=== PATIENT | male | born 1995 | race Caucasian/White ===

== ENCOUNTER 2024-04-28 15:15 | Emergency (ER) | payer OTHER, SELFPAY ==
[2024-04-28 15:19] VITALS: BP 134/84
--- NOTE | 2024-04-28 17:45 | ED.GENMED ---
History of Present Illness
General
Chief Complaint: Medication Reaction
Time Seen by Provider: 04/28/24 17:14
History of Present Illness
History of Present Illness:
28-year-old man presenting to the emergency department with a rash. Patient states that he has wisdom tooth taken out and they gave amoxicillin afterwards. He had 2 doses of the amoxicillin when he developed a rash. The rash has been ongoing for
3 days now. He states that with body wide. At first it did look like hives. It was extremely itchy and raised. Since then the rash has been improving in some areas but spreading in some areas. No fevers or chills. No lesions in the mouth or
the genitals. No rashes to the hands or feet. No fever. He is allergic to lidocaine. He is not on any other medications. He did get his antibiotic changed from the dentist. He did not take any Benadryl prior to arrival. He has not been sick
recently. No fevers or chills. No sore throat. No nausea vomiting.
Phy Exam
Physical Exam
Physical Exam:
GENERAL: in no acute distress
HEENT: normocephalic, extraocular movements intact, moist oral mucosa
NECK: normal inspection
RESPIRATORY: no respiratory distress, clear to auscultation bilaterally
CARDIOVASCULAR: regular rate and rhythm
ABDOMEN/: soft, non-distended, non-tender to palpation, no rebound or guarding
EXTREMITIES: non-tender, no edema/swelling
NEUROLOGIC: awake and alert, moves all extremities
SKIN: warm, hives to the distal extremities and patchy hives to the face. Otherwise there is a macular papular rash to the trunk and bilateral legs. Negative Nikolsky sign.
Course
Orders/Labs/Results
Orders:
Orders
04/28/24 17:39
Diphenhydramine [Benadryl] 25 mg PO NOW STA
Famotidine [Pepcid] 20 mg PO NOW STA
Prednisone [Deltasone] 50 mg PO NOW STA
Vital Signs
Initial and Last Documented VS:
Initial Vital Signs
Temp Pulse Resp BP Pulse Ox
98.7 F 86 16 134/84 100
04/28/24 15:19 04/28/24 15:19 04/28/24 15:19 04/28/24 15:19 04/28/24 15:19
Last Documented Vital Signs
Temp Pulse Resp BP Pulse Ox
98.7 F 86 16 134/84 100
04/28/24 15:19 04/28/24 15:19 04/28/24 15:19 04/28/24 15:19 04/28/24 15:19
MDM/Problems Addressed
Differential Diagnosis Includes:
Patient is a 28-year-old man presenting to the emergency department with body wide rash that occurred after 2 doses of amoxicillin. Vitals are unremarkable and on exam patient does have hives and some location within has a maculopapular rash on his
trunk and bilateral lower extremities. Likely component of allergic reaction as well as drug rash from amoxicillin. History exam is not consistent with amoxicillin rash from mono. Otherwise given that he has no mucosal lesions less likely to be
SJS or ten. Rash does not appear infected to suggest cellulitis. Will treat with Benadryl and steroids. Will give short course of steroids. Patient advised that patient stay away from amoxicillin as the hives do suggest allergic reaction. The
maculopapular rash with a drug rash patient was educated that it could last for days
*Critical Care Note
Total Time (30-74mins, 75-104mins- exclusive of procedures): Not Applicable
ED Attending Note
-
Portions of this chart may have been created with voice recognition software.� Occasional wrong word or��sound alike� substitutions may have occurred due to the inherent limitations of voice recognition software.
Discharge Plan
Departure
Patient Disposition: Home (Routine Discharge)
Date of Disposition: 04/28/24
Time of Disposition: 18:11
Patient with high blood pressure during this ER visit?: No
Discharge Problem:
Rash
Prescriptions:
New
prednisone 20 mg tablet
40 mg PO DAILY 5 Days Qty: 10 0RF
Referrals:
Farzad Culver DO [Family Provider] -
Activity Restrictions/Additional Instructions:
You were seen in the Emergency Department today for a rash. We did give you steroids. I did send you a prescription. You may take geki-evn-rjjhiyk Benadryl for the itchiness as well. Your rash could also be a drug rash from the amoxicillin in
addition to the allergic reaction. The rash will take a few days to resolve.
We would like for you to follow up with your primary care physician for further evaluation. If you experience fever, worsening of your symptoms, or develop any other new or concerning symptoms, please return to the Emergency Department immediately.
Please see the attached sheet for additional information.
Interventions
Interventions:
*Risk Screen - Suicide Last Done: 04/28/24 15:19
*General Assessment Last Done: 04/28/24 15:19
*Neglect/Abuse Screening Last Done: 04/28/24 15:19
*ED COVID-19 Vaccine History Last Done: 04/28/24 15:19
Discharge Date and Time
Print Language: MONTSERRATIAN
[2024-04-28] MEDS: BENADRYL 25 MG PO (18:13)
[2024-04-28] MEDS: DELTASONE 50 MG PO (18:13)
[2024-04-28] MEDS: PEPCID 20 MG PO (18:14)
[2024-04-28 18:20] VITALS: BP 122/68
== END 2024-04-28 18:30 | disposition home or self-care (01) ==
LOC: EMR 15:15
PROVIDERS: EMERGENCY PHYSICIAN Student in an Organized Health Care Education/Training Program; FAMILY PHYSICIAN Student in an Organized Health Care Education/Training Program
DX: R21 Rash and other nonspecific skin eruption (principal)
CPT/HCPCS: 99282

== ENCOUNTER 2024-04-30 19:12 | Emergency (ER) | payer OTHER, SELFPAY ==
[2024-04-30 19:30] VITALS: BP 117/71
[2024-04-30 20:04] VITALS: BMI 21.4
--- NOTE | 2024-04-30 20:05 | ED.GENMED ---
History of Present Illness
General
Chief Complaint: Allergic Reaction
Source: patient
Exam Limitations: none
Time Seen by Provider: 04/30/24 19:56
History of Present Illness
History of Present Illness:
See MDM
Past History
Past History
ED Past Medical History: None
ED Past Surgical History: None
Social History
Tobacco: Non-smoker
Alcohol: None
Phy Exam
Physical Exam
Physical Exam:
See MDM
Course
Orders/Labs/Results
Orders:
Orders
04/30/24 20:04
Dexamethasone Sod Phosphate [Decadron] 10 mg IV NOW STA
HydrOXYzine [Vistaril] 50 mg IM NOW STA
04/30/24 20:12
Complete Blood Count/With Diff Urgent
Comprehensive Metabolic Panel Urgent
Abnormal Lab Results
04/30/24
20:12
RBC 4.42 L 10^6/uL
(4.70-6.10)
MCH 32.4 H pg
(27.0-31.0)
Absolute Lymphs (auto) 0.7 L 10^3/uL
(1.2-3.4)
Absolute Monos (auto) 0.7 H 10^3/uL
(0.1-0.6)
Lymphocytes % 10.4 L %
(20.5-51.1)
Monocytes % 9.7 H %
(1.7-9.3)
Glucose 123 H mg/dl
(70-99)
04/30/24 20:12
04/30/24 20:12
Vital Signs
Initial and Last Documented VS:
Initial Vital Signs
Temp Pulse Resp BP Pulse Ox
99.0 F 95 18 117/71 100
04/30/24 19:30 04/30/24 19:30 04/30/24 19:30 04/30/24 19:30 04/30/24 19:30
Last Documented Vital Signs
Temp Pulse Resp BP Pulse Ox
99.0 F 95 18 126/82 100
04/30/24 19:30 04/30/24 19:30 04/30/24 19:30 04/30/24 20:09 04/30/24 20:15
MDM/Problems Addressed
Differential Diagnosis Includes:
HPI and MDM Narrative:
28-year-old male presenting for evaluation of persistent rash. He was seen several days ago and diagnosed with allergic reaction and started on Pepcid and prednisone. Patient is concerned because he remains itchy despite Benadryl at home. The
rash has now spread and appears to be diffuse. On exam, patient has a macular papular rash with urticaria surrounding his entire body. It appears to spare mucous membranes. He is now having some discoloration of both which appears to be related
to edema causing venous stasis. All 4 extremities neurovascularly intact. Will obtain blood work to rule out evidence of dress syndrome. Will try Vistaril instead of Benadryl and will give dose of IV steroid
Physical exam
General: Nontoxic-appearing. Itching his body
HEENT: protecting airway. Posterior pharynx clear
Neck: appears supple
CV: No evidence of cyanosis
Resp: No accessory muscle use
Abd: Non-distended
Extremities: Venous stasis to bilateral ankles
Neuro: alert
Psych: Normal affect
Skin: Maculopapular rash throughout his body. Spares mucous membranes
Problems Addressed including Acute and Chronic Conditions affecting care:
1. Allergic reaction
Acuity: acute
Prognosis: stable
Details: Given duration of symptoms, patient is out of the window of anaphylaxis. Will give dose of IV steroid and will try IM Vistaril
Updates
On reevaluation after Vistaril and Decadron, patient states he is feeling much better.
Differential Diagnosis (but not limited to): Dress syndrome, gyttate psoriasis, allergic reaction
Testing considered:
Drug therapy (if applicable): OTC meds, please see d/c instruction regarding Rx drugs
Amount and/or Complexity of Data Reviewed
Clinical info obtained from: Patient
External data reviewed: N/A
Labs I independently reviewed (but not limited to): Eosinophils within normal limit
Radiology: N/A
Pulse Ox: not hypoxic
EKG independently reviewed: N/A
Beader Tender: N/A
Critical Care: N/A
Risk of Complication:
Social Determinants of health: Good social support
Discussed with other providers: N/A
Escalation of Care includes Admit/Obs: After being observed in the Emergency Department, pt stable for discharge.
Occasional wrong word or 'sound a like' substitutions may have occurred due to the inherent limitations of voice recognition software. Read the chart carefully and recognize, using context, where substitutions have occurred.
*Critical Care Note
Total Time (30-74mins, 75-104mins- exclusive of procedures): Not Applicable
ED Attending Note
-
Portions of this chart may have been created with voice recognition software.� Occasional wrong word or��sound alike� substitutions may have occurred due to the inherent limitations of voice recognition software.
Discharge Plan
Departure
Patient Disposition: Home (Routine Discharge)
Date of Disposition: 04/30/24
Time of Disposition: 21:22
Patient with high blood pressure during this ER visit?: No
Discharge Problem:
Allergic reaction
Prescriptions:
New
prednisone 10 mg tablet
See Rx Instructions .ROUTE .COMPLEX Qty: 45 0RF
Rx Instructions:
5 tabs day 1-3, 4 tabs day 4-6, 3 tabs day 7-9, 2 tabs day 10-12, 1 tab day 13-15
hydroxyzine pamoate 25 mg capsule
25 mg PO TID PRN (Reason: itching) Qty: 20 0RF
No Action
prednisone 20 mg tablet
40 mg PO DAILY 5 Days Qty: 10 0RF
Referrals:
Farzad Culver DO [Family Provider] -
Chel Diaz DO [Active] -
Activity Restrictions/Additional Instructions:
Please return for any worsening symptoms.
You may return at any time if you have further concerns.
Please call to make an appointment to see the mooner. Please let them know that you were seen in the emergency department.
Thank you for choosing [facility].
Interventions
Interventions:
*Risk Screen - Suicide Last Done: 04/30/24 20:30
*General Assessment Last Done: 04/30/24 20:31
*Neglect/Abuse Screening Last Done: 04/30/24 20:30
ED- Fall Risk Assessment Last Done: 04/30/24 20:30
*ED COVID-19 Vaccine History Last Done: 04/30/24 20:30
ED- Cardiac Assessment Last Done: 04/30/24 20:28
ED- Pulmonary Assessment Last Done: 04/30/24 20:28
ED-Skin Assessment Last Done: 04/30/24 20:28
Discharge Date and Time
Print Language: BRAZILIAN
[2024-04-30 20:09] VITALS: BP 126/82
[2024-04-30 20:19] LABS: % Eosinophils 4.9 % (0-6); % Immature Granulocytes 0.1 % (0-0.5); % Lymphocytes 10.4 % (20.5-51.1); % Monocytes 9.7 % (1.7-9.3); % Neutrophils 74.9 % (42.2-75.2); Absolute Eosinophils 0.3 10^3/uL (0-0.7); Absolute Lymphocytes 0.7 10^3/uL (1.2-3.4); Absolute Monocytes 0.7 10^3/uL (0.1-0.6); Absolute Neutrophils 5.3 10^3/uL (1.4-6.5); Hematocrit 40.6 % (39.0-52.0); Hemoglobin 14.3 g/dL (13.0-18.0); Mean Corp Hgb Conc. 35.2 g/dL (33.0-37.0); Mean Corpuscular Hgb 32.4 pg (27.0-31.0); Mean Corpuscular Volume 91.9 fL (80.0-94.0); Mean Platelet Volume 9.5 fL (7.4-10.4); Nucleated Red Blood Cells % 0 % (-); Platelet Count 173 10^3/uL (130-400); Red Blood Cell Count 4.42 10^6/uL (4.70-6.10); Red Cell Dist. Width 12.1 % (11.5-14.5)
[2024-04-30] MEDS: VISTARIL 50 MG IM (20:20)
[2024-04-30] MEDS: DECADRON 10 MG IV (20:20)
[2024-04-30 20:34] LABS: ALT (SGPT) 18 U/L (0-50); AST (SGOT) 18 U/L (17-59); Albumin 4.9 g/dl (3.5-5.0); Alkaline Phosphatase 62 U/L (38-126); Blood Urea Nitrogen 18 mg/dl (9-20); Calcium 9.2 mg/dl (8.4-10.2); Carbon Dioxide 25 mmol/L (22-30); Chloride 101 mmol/L (98-107); Estimated Creatinine Clearance > 125 ml/min; Glucose 123 mg/dl (70-99); Potassium 4.1 mmol/L (3.5-5.1); Sodium 136 mmol/L (135-145); Total Bilirubin 0.9 mg/dl (0.2-1.3); Total Protein 7.5 g/dl (6.3-8.2); eGFR > 60.00
[2024-04-30 21:00] VITALS: BP 115/62
== END 2024-04-30 21:39 | disposition home or self-care (01) ==
LOC: EMR 19:12
PROVIDERS: EMERGENCY PHYSICIAN Student in an Organized Health Care Education/Training Program; FAMILY PHYSICIAN Student in an Organized Health Care Education/Training Program
DX: T78.40XA Allergy, unspecified, initial encounter (principal); X58.XXXA Exposure to other specified factors, initial encounter
CPT/HCPCS: 99284; 96374; 96372; 80053; 85025